=== PATIENT | male | born 1970 | race Caucasian/White ===

== ENCOUNTER 2020-10-25 08:39 | Emergency (ER) | payer OTHER, SELFPAY ==
[2020-10-25 08:45] VITALS: BP 138/91; PULSE 63; RESP 16; TEMP 35.8; O2SAT 100
--- NOTE | 2020-10-25 08:50 | ED.GENADULT ---
HPI - General Adult General Chief complaint: Upper Respiratory Infection Stated complaint: Sore throat Time Seen by Provider: 10/25/20 08:50 Source: patient and RN notes reviewed Mode of arrival: ambulatory Limitations: no limitations History of Present Illness HPI narrative: 50-year-old male presents with complaints of sore throat for the past 3 weeks. Bandar reports his symptoms are constant and that he received a NEGATIVE Rapid Strep (culture also) and COVID-19 test this past week (Monday10/19/20 and Monday10/20/20). No other treatment. He reports having history of chronic throat issues without relief from Lidocaine (after this provider offer for relief). Report performing oral sexual on spouse prior to increase throat pain, in which spouse has history of yeast infections and STDs. No high fevers, drooling, neck or throat swelling. Pain is bilateral. Hurts to swallow. Exacerbation factors consist of swallowing. No rhinorrhea or nasal congestion. No voice change. No nausea, vomiting, or abdominal pain. Tolerating liquids well. Denies chills, dyspnea, difficulty swallowing, jaw pain, dental pain, facial pain, foreign body sensation, and rash. Remains active. The patient reports he have not been diagnosed with COVID-19. The patient reports he is not waiting for the results of a COVID-19 lab test. The patient reports he do not have weakness or fatigue. The patient reports he do not have a new or worsening cough or shortness of breath. Denies chest pain. The patient reports he do not have any loss of taste, nausea, abdominal pain, and diarrhea. Denies recent traveling. Denies concerns for COVID-19 or exposures been home with limited outdoor exposure except for essential household needs, work, and return home. At this time, patient is not suspected of having COVID-19. Some parts of this dictation were generated by voice recognition software and may contain typographical and/or grammatical inaccuracies. Related Data Home Medications Medication Instructions Recorded Confirmed gabapentin 600 mg PO TID 11/04/19 11/04/19 levothyroxine 10/25/20 lorazepam 10/25/20 nortriptyline 10/25/20 Allergies Allergy/AdvReac Type Severity Reaction Status Date / Time No Known Allergies Allergy Verified 01/12/19 18:49 Review of Systems Review of Systems: Narrative: CONSTITUTIONAL: Denies fever, chills, sweats. EYES: Denies visual changes, redness, discharge. ENT: Denies rhinorrhea, otalgia, congestion. Complains of sore throat, possible STD exposure. CARDIOVASCULAR: Denies chest pain, palpitations, edema. RESPIRATORY: Denies dyspnea, wheezing, cough. GASTROINTESTINAL: Denies abdominal pain, nausea, vomiting, diarrhea. GENITOURINARY: Denies dysuria, hematuria, abnormal discharge. SKIN: Denies rash or itching. MUSCULOSKELETAL: Denies acute back pain, joint pain, or myalgia. NEUROLOGIC: Denies numbness or focal weakness. PSYCHIATRIC: Denies anxiety or depression. All systems reviewed & are unremarkable except as noted in HPI and below. [facility] Past Medical History Medical History (Updated 10/25/20 @ 12:32 by CHRISTINE Beltre) Chronic sore throat Treated at 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
--- NOTE | 2020-10-25 10:13 | PC.NURSE ---
Rocephin and zithromax given at 0922. Rocephin given in left gluteus. Unable to scan as computer had been left unplugged.
--- NOTE | 2020-10-25 10:15 | PC.NURSE ---
Throat culture obtain per instruction. Looking specifically for gonorrhea and or chlamydia.
== END 2020-10-25 09:47 | disposition home or self-care (01) ==
PROVIDERS: Emergency Provider Nurse Practitioner Family
DX: J02.9 Acute pharyngitis, unspecified (principal); Z20.2 Contact with and (suspected) exposure to infections with a predominantly sexual mode of transmission
CPT/HCPCS: 87070; 87491; 87591; 87804; 99213; G0463

== ENCOUNTER 2022-06-29 15:51 | Emergency (ER) | payer OTHER, SELFPAY ==
[2022-06-29 16:12] VITALS: BP 113/68; PULSE 65; RESP 16; TEMP 36.1; O2SAT 98
--- NOTE | 2022-06-29 16:19 | ED.URI ---
HPI - URI/Sore Throat General Chief Complaint: Upper Respiratory Infection Stated Complaint: SORE THROAT Time Seen by Provider: 06/29/22 16:19 Source: patient and RN notes reviewed Mode of arrival: ambulatory Limitations: no limitations History of Present Illness HPI Narrative: 52-year-old male presents with concern for chronic sore throat. He reports a history of problems with his throat causing him frequent sore throat. He reports he has had this current sore throat for 2 weeks. He is concerned because he has had similar instances in the past with this sore throat that more related to oral sex with his when she had a yeast infection. He reports in the past he was treated successfully with fluconazole. He denies nasal congestion, rhinorrhea, headache, body aches, chills, sweats, fever. Denies known sick contacts. Reports he took a negative COVID test. MD elicited complaint: sore throat Related Data Home Medications Medication Instructions Recorded Confirmed gabapentin 600 mg tablet 600 mg PO TID 11/04/19 11/04/19 levothyroxine 75 mcg tablet 10/25/20 lorazepam 0.5 mg tablet 10/25/20 Allergies Allergy/AdvReac Type Severity Reaction Status Date / Time No Known Allergies Allergy Verified 01/12/19 18:49 Review of Systems Review of Systems: CONSTITUTIONAL: Denies malaise, chills, sweats, or fever. EYES: Denies visual changes, redness, or discharge. ENT: Denies rhinorrhea, congestion, sinus pain, otalgia. Reports sore throat. CARDIOVASCULAR: Denies chest pain, palpitations, or edema. RESPIRATORY: Denies cough. Denies dyspnea. GASTROINTESTINAL: Denies abdominal pain, nausea, vomiting, diarrhea SKIN: Denies rash or itching. MUSCULOSKELETAL: Denies myalgia. NEUROLOGIC: Denies headache. 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 Family History Family History (Updated 10/25/20 @ 09:06 by CHRISTINE Beltre) Father Malignant neoplasm of prostate Mother Hypertension Social History Social History (Updated 10/25/20 @ 09:07 by CHRISTINE Beltre) Smoking status: Never smoker Tobacco type: cigarettes Second hand tobacco smoke exposure: No Alcohol intake: current Substance use: never Additional living arrangements comments: spouse Gender identity (if verbalized by the patient): Male Sexual Orientation (if Verbalized by the Patient): Straight or Heterosexual Comments At time of signature, agree with nursing past medical, surgical, social and family history. There is no relevant family history pertinent to the presenting complaint Exam Narrative: GENERAL: Well-appearing, well-nourished, and in no acute distress. HEAD: Normocephalic EYES: PERRLA, conjunctivae clear ENT: Nares clear. Mucous membranes moist. TM pearly colon with dull light reflex bilaterally; no tragal tenderness. Oropharynx not erythematous, white papules noted on the tongue Tonsils not enlarged and without exudate, no drooling, no hoarseness, no trismus, uvula midline. NECK: Supple. No lymphadenopathy CHEST: Clear to auscultation, breath sounds equal. No wheezing, rhonchi, rales, or stridor. No respiratory distress, speaks in full sentences. HEART: Regular rate and rhythm. No murmur heard. SKIN: Warm, dry, no rash. NEURO: Alert and oriented x3. PSYCH: Normal mood and affect Course Course Emergency Course: Discussed negative strep results, treatment options, patient reports success with treatment with fluconazole, through shared decision making fluconazole prescribed. Patient instructed to follow-up if symptoms do not improve. Patient is aware of diagnosi
== END 2022-06-29 16:37 | disposition home or self-care (01) ==
PROVIDERS: Emergency Provider Nurse Practitioner; PCP Internal Medicine
DX: J31.2 Chronic pharyngitis (principal); E03.9 Hypothyroidism, unspecified
CPT/HCPCS: 87081; 87880; 99213; G0463

== ENCOUNTER 2023-05-29 06:42 | Emergency (ER) | payer OTHER, SELFPAY ==
[2023-05-29 06:45] VITALS: BP 128/90; PULSE 74; RESP 12; TEMP 36.7; O2SAT 100
--- NOTE | 2023-05-29 07:47 | ED.GENADULT ---
HPI - General Adult General Chief complaint: Unspecified Stated complaint: pill stuck in throat Time Seen by Provider: 05/29/23 07:04 History of Present Illness HPI narrative: Patient is a 53-year-old male who presents ER with concerns for having a pill stuck in his throat. He recently was started on doxycycline after having a tick bite. No fevers or chills or sweats. Reports after taking the pill last night he began having discomfort in the middle of his chest several hours later. He has been able to eat and drink and has no regurgitation. 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 He has never had a diagnosis of a esophageal stricture or food impaction Related Data Home Medications Medication Instructions Recorded Confirmed gabapentin 600 mg tablet 600 mg PO TID 11/04/19 11/04/19 levothyroxine 75 mcg tablet 10/25/20 lorazepam 0.5 mg tablet 10/25/20 Allergies Allergy/AdvReac Type Severity Reaction Status Date / Time No Known Allergies Allergy Verified 05/29/23 06:56 Review of Systems ENT: Denies dysphagia and Denies sore throat Cardiovascular: Cardiovascular: Denies chest pain and Denies dyspnea on exertion Gastrointestinal: Gastrointestinal: Denies abdominal pain, Denies belching, Denies dysphagia, Reports heartburn, Denies nausea and Denies vomiting PMFSH Past Medical History Medical History (Updated 05/29/23 @ 07:48 by Jorge Luis Angulo MD) Chronic sore throat Treated at [facility] and GI Hypothyroidism Surgical History Surgical History (Updated 10/25/20 @ 12:32 by CHRISTINE Beltre) 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 Family History Family History (Updated 10/25/20 @ 09:06 by CHRISTINE Beltre) Father Malignant neoplasm of prostate Mother Hypertension Social History Social History (Updated 10/25/20 @ 09:07 by CHRISTINE Beltre) Smoking status: Never smoker Tobacco type: cigarettes Second hand tobacco smoke exposure: No Alcohol intake: current Substance use: never Living arrangements: with family Additional living arrangements comments: spouse Occupation/Education: occupation Gender identity (if verbalized by the patient): Male Sexual Orientation (if Verbalized by the Patient): Straight or Heterosexual Exam Narrative: GENERAL: Well-appearing, well-nourished, and in no acute distress. HEAD: Normocephalic, atraumatic. ENT: Mucous membranes moist. EXTREMITIES: Normal range of motion. No edema. NEURO: Alert and oriented x3. PSYCH: Normal mood and affect. Course Course Emergency Course: Patient resting comfortably. Discussed esophagitis caused by taking his medication without any food. Discussed that x-ray will not show foreign body. Patient has no symptoms of esophageal obstruction. [place] appropriate be discharged home and may take his home PPI Vital Signs Vital signs: Vital Signs Temperature 98.1 F 05/29/23 06:45 Pulse Rate 74 05/29/23 06:45 Respiratory Rate 12 05/29/23 06:45 Blood Pressure 128/90 05/29/23 06:45 Pulse Oximetry 100 05/29/23 06:45 Oxygen Delivery Room Air 05/29/23 06:45 Temperature 98.1 F 05/29/23 06:45 Pulse Rate 74 05/29/23 06:45 Respiratory Rate 18 05/29/23 07:50 Blood Pressure 128/90 05/29/23 06:45 Pulse Oximetry 99 05/29/23 07:50 Oxygen Delivery Room Air 05/29/23 06:45 Medical Decision Making Vital Signs Vital Signs: Vital Signs Temperature 98.1 F 05/29/23 06:45 Pulse Rate 74 05/29/23 06:45 Respiratory Rate 12 05/29/23 06:45 Blood Pressure 128/90 05/29/23 06:45 Pulse Oximetry 100 05/29/23 06:45 Oxygen Delivery Room Air 05/29/23 06:45 Temperature 98.1 F 05/29/23 06:45 Pulse Rate 74 05/29/23 06:45 Respiratory
[2023-05-29 07:50] VITALS: RESP 18; O2SAT 99
== END 2023-05-29 07:51 | disposition home or self-care (01) ==
PROVIDERS: Emergency Provider Emergency Medicine
DX: K20.80 Other esophagitis without bleeding (principal); E03.9 Hypothyroidism, unspecified
CPT/HCPCS: 99281

== ENCOUNTER 2024-02-05 08:59 | Emergency (ER) | payer OTHER, SELFPAY ==
--- NOTE | ~2024-02-05 | CT_ITS ---
EXAMINATION: CT cervical spine wo con DATE: 02/05/2024 09:58 INDICATION: Head injury 3 days ago. Neck pain. TECHNIQUE: Computed tomography (CT) of the cervical spine was performed without intravenous contrast. Automated exposure control and iterative reconstruction technique were employed. Exam dose: 525.84 mGy-cm total exam DLP. COMPARISON: None FINDINGS: There is slight reversal cervical curvature which may be due to positioning or muscle spasm . There is uncovertebral joint spurring on the right at C3-4 and on the left C4-5 in particular. C1 and C2 are normally aligned and the odontoid process is intact. No fracture or dislocation or lock ed facet or prevertebral soft tissue swelling is detected. Cervical interspaces are relatively well p reserved.. Incidentally noted is a right-sided aortic arch.. IMPRESSION: Slight reversal of cervical curvature, which may be due to positioning or muscle spasm Mild cervical spondylosis; no fracture or dislocation or locked facet Right sided aortic arch Reviewed, dictated and finalized at [facility]. Reviewed, dictated and finalized at [facility]. IMPRESSION: Slight reversal of cervical curvature, which may be due to positio nya or muscle spasm Mild cervical spondylosis; no fracture or dislocation or locked facet Right sided aortic arch
--- NOTE | ~2024-02-05 | XR_ITS ---
EXAMINATION: XR shoulder RT min 2V DATE: 02/05/2024 10:04 INDICATION: Right shoulder injury and pain. TECHNIQUE: 4 views of right shoulder were obtained. COMPARISON: None. FINDINGS: Bone alignment is normal. No fracture. Glenohumeral joint is normal. There is mild acromioc lavicular joint osteoarthritis. IMPRESSION: 1. Mild right acromioclavicular joint osteoarthritis. Reviewed, dictated and finalized at [facility].
--- NOTE | ~2024-02-05 | CT_ITS ---
EXAMINATION: CT brain wo con DATE: 02/05/2024 09:58 INDICATION: Head injury 3 days ago. Headache, lightheadedness, nausea, emesis. TECHNIQUE: Computed tomography (CT) of the head was performed without intravenous contrast. The mA wa s adjusted according to patient size. Iterative reconstruction technique was employed. Exam dose: 68 1.00 mGy-cm total exam DLP. COMPARISON: None FINDINGS: No intracranial mass lesion or hemorrhage or cerebrovascular accident. No midline shift or mass effect. Normal ventricular size. Normal colon-white matter differentiation. No subdural or epidur al hematoma. Mild mucoperiosteal thickening of the right maxillary sinus and soft tissue opacification of the righ t infundibulum is noted. The mastoid air cells and included paranasal sinuses are otherwise unremarka ble. No fracture or bone destruction of the cranial vault. IMPRESSION: No significant intracranial abnormality or skull fracture Reviewed, dictated and finalized at [facility]. Reviewed, dictated and finalized at [facility].
[2024-02-05 09:02] VITALS: BP 127/87; PULSE 59; RESP 18; TEMP 36.5; O2SAT 100
--- NOTE | 2024-02-05 09:33 | ED.HEATRA ---
HPI - Head Injury General Chief complaint: Head Injury Stated complaint: hit head snowboarding Monday Time Seen by Provider: 02/05/24 09:19 Source: patient Mode of arrival: ambulatory Limitations: no limitations History of Present Illness HPI Narrative: Patient is a 53 y/o male who presents to the ED with c/o HI. Patient reports he was skiing over the weekend when he had a fall, fell backwards and hit his head on the ground. He was wearing a helmet. Denied LOC. States he continued skiing that day into Monday, but has had persistent posterior headaches, posterior neck pain, pain in his right shoulder. He also reported having mild lightheadedness and nausea this morning which prompted his presentation. Denies syncope, vomiting, vision changes, CP, SOB, confusion, weakness, numbness. Related Data Home Medications Medication Instructions Recorded Confirmed gabapentin 600 mg tablet 600 mg PO TID 11/04/19 11/04/19 levothyroxine 75 mcg tablet 10/25/20 lorazepam 0.5 mg tablet 10/25/20 Allergies Allergy/AdvReac Type Severity Reaction Status Date / Time No Known Allergies Allergy Verified 05/29/23 06:56 Review of Systems Review of Systems: CONSTITUTIONAL: Denies fever, chills, or sweats. ENT: Denies vision changes. CARDIOVASCULAR: Denies chest pain. RESPIRATORY: Denies dyspnea. GASTROINTESTINAL: Reports mild nausea. MUSCULOSKELETAL: See HPI. NEUROLOGIC: See HPI. 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 HEAD: Normocephalic, atraumatic. EYES: PERRL/EOMI, conjunctiva clear. No nystagmus. NECK: No significant midline cervical spinal tenderness. Tenderness along posterior cervical paraspinal musculature bilaterally, worse on R. RESPIRATORY: Airway patent, respirations nonlabored. Clear to auscultation bilaterally, no rales, rhonchi, wheezing. CARDIOVASCULAR: Regular rate and rhythm without murmurs, rubs, or gallops. MUSCULOSKELETAL: Moves all extremities. No gross deformities. No midline thoracic or lumbar spinal tenderness. SKIN: Warm, dry, normal color. NEURO: A&O X3. Speech clear. Cranial nerves II-XII grossly intact. Steady gait. No ataxic movements. No focal deficits. PSYCHIATRIC: Appropriate mood and affect. Normal interaction. Course Vital Signs Vital signs: Vital Signs Temperature 97.7 F 02/05/24 09:02 Pulse Rate 59 L 02/05/24 09:02 Respiratory Rate 18 02/05/24 09:02 Blood Pressure 127/87 02/05/24 09:02 Pulse Oximetry 100 02/05/24 09:02 Temperature 97.7 F 02/05/24 09:02 Pulse Rate 59 L 02/05/24 09:02 Respiratory Rate 18 02/05/24 09:02 Blood Pressure 127/87 02/05/24 09:02 Pulse Oximetry 100 02/05/24 09:02 MDM - Head Injury MDM Narrative Medical decision making narrative: Patient presented to ED 3 days s/p HI while snow skiing. Complains of headache,
[2024-02-05 10:43] VITALS: BP 131/102; PULSE 57; RESP 16; TEMP 36.7; O2SAT 99
== END 2024-02-05 10:46 | disposition home or self-care (01) ==
PROVIDERS: Emergency Provider Physician Assistant; PCP Physician Assistant
DX: S09.90XA Unspecified injury of head, initial encounter (principal); S46.911A Strain of unspecified muscle, fascia and tendon at shoulder and upper arm level, right arm, initial encounter; E03.9 Hypothyroidism, unspecified; M47.812 Spondylosis without myelopathy or radiculopathy, cervical region; M19.011 Primary osteoarthritis, right shoulder; V00.321A Fall from snow-skis, initial encounter; Y93.23 Activity, snow (alpine) (downhill) skiing, snowboarding, sledding, tobogganing and snow tubing
CPT/HCPCS: 70450; 72125; 73030; 99284

== ENCOUNTER 2025-08-29 05:41 | Emergency (ER) | payer OTHER, SELFPAY ==
--- OUTSIDE RECORDS SUMMARY | 2013-09-10 10:46 | XMS_ITS | Continuity of Care Document ---
Author Organization [facility] Address [address] [place] [address] Phone Care Team Providers Care Director Case Management Name Role Phone Kathy HSANNON, Hurst Unavailable Unavailable Allergies, Adverse Reactions, Alerts Substance Reaction Status Criticality No Known allergies Medications Medication Instructions Dosage Effective Dates (start - stop) Status Comments DEXILANT (unknown strength) Not Available - Active TIROSINT (unknown strength) Not Available - Active Procedures Procedure Date MU Reporting MU Reporting MU Reporting POSTOP FOLLOW-UP VISIT MU Reporting POSTOP FOLLOW-UP VISIT MU Reporting OFFICE/OUTPATIENT VISIT EST Advance Directives Directive Yes / No Effective Date File Name No Information Encounters Encounter Description Practice Location Reason(s) For Visit Diagnoses Date Provider Providers Copied on Encounter [facility], [address] [place] [address], [facility], tel:[phone] [facility] No Information 3 Kathy Hurst. [address] [place], [place], [id number] . tel: [phone] [facility], [address] [place] [address], [address], tel:[phone] [facility] No Information 3 Kathy Hurst. [address], [place], [id number] . tel: [phone] [facility], [address], [place], [facility], [place] tel:[phone] [facility] Aftercare following surgery of the musculoskeletal system, necOsteoarthrosi s, unspecified whether generalized or localized, involving lower leg 3 Kathy Hurst. [address] [facility] [place], [place], [id number] . tel: [phone] Referring Provider: Bryce Butterfield [address] [place] [address] , [place], [address]. tel:[phone] [facility], [address], [address], [place] tel:[phone] [facility] Aftercare following surgery of the musculoskeletal system, nec 3 Kathy Hurst. [address] [place], [place], [id number] . tel: [phone] Referring Provider: Bryce Butterfield [address] [place] [address] , [place], [address]. tel:[phone] [facility], [address], [address], [place] tel:[phone] [facility] No Information 3 Kathy Hurst. [address] [place], [place], [id number] . tel: [phone] OFFICE/OUTPAT IENT VISIT EST [facility], [address], [address], [place] tel:[phone] [facility] Medial meniscal tearKnee effusion 0 3 Kathy Hurst. [address] [place], [place], [id number] . tel: [phone] Referring Provider: Bryce Butterfield [address] [place] [address] , [place], [address]. tel:[phone] Family History Family Member Type Diagnosis Age At Onset Problem (finding) Family history of prost ate cancer Payers Payer name Insurance type Covered republican ID Authoriza tion(s) No Information Social History Type Description Quantity Date Captured Comments Sex Male Smoking Status No Information Chief Complaint And Reason For Visit No Information Reason For Referral Reason For Referral No Information Plan Of Treatment Date Type Action Status Referral Ordered: INJECTION LT knee Appointment date/timeframe: 07/02/2013 ordered Referral Ordered: RADEX TALON COMPL 4/MORE VIEWS LT knee ordered History Of Present Illness Encounter Date Complaint History Of Prese nt Illness No Information Functional Status Date Functional Assessmen t No Information Instructions Date Instruction Additional Infor mation Continue medication as prescribe d Activity as tolerated Discussed post-operative precaut ions Continue medication as prescribe d Activity as tolerated OTC anti-inflammatories (NSAIDs) Activity as tolerated to limit activity OTC anti-inflammatories (NSAIDs) Activity as tolerated Assessments Type Assessment Date No Information Patient Care Teams Name Effective Dates (start - stop) Status Members No Information
--- OUTSIDE RECORDS SUMMARY | 2013-09-10 10:46 | XMS_ITS | Continuity of Care Document ---
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 No Information 3 Kathy Hurst. [address] [place], [place], [id number] . tel: [phone] [facility], [address] [place] [address], [address], tel:[phone] [facility] No Information 3 Kathy Hurst. [address], [id number] . tel: [phone] [facility], [address], [place], [facility], [place] tel:[phone] [facility] Aftercare following surgery of the musculoskeletal system, necOsteoarthrosi s, unspecified whether generalized or localized, involving lower leg [address] [facility] [place], [place], [address] . tel: [phone] Referring Provider: Bryce Butterfield [address] [place] [address] , [place], [address]. tel:[phone] [facility], [address], [address], [place] tel:[phone] [facility] Aftercare following surgery of the musculoskeletal system, nec 3 Kathy Hurst. [address] [place], [place], [id number] . tel: [phone] Referring Provider: Bryce Butterfield [address] [place] [address] , [place], [address]. tel:[phone] [facility], [address], [address], [place] tel:[phone] [facility] No Information 3 Kathy Hurst. [address] [place], [place], [id number] . tel: [phone] OFFICE/OUTPAT IENT VISIT EST [facility], [address], [address], [place] tel:[phone] [facility] Medial meniscal tearKnee effusion 0 3 Kathy Hurst. [address] [place], [place], [id number] . tel: [phone] Referring Provider: Bryce Butterfield [address] [place] [address] , [place], [address]. tel:[phone] Family History Family Member Type Diagnosis Age At Onset Problem (finding) Family history of prost ate cancer Payers Payer name Insurance type Covered green party ID Authoriza tion(s) No Information Social History [...]
--- OUTSIDE RECORDS SUMMARY | 2025-08-29 05:44 | XMS_ITS | Clinical Summary ---
Author Organization [facility] Medical Office Building A Address [address] [place] [address] Care Team Providers Care Disability Insurance Hearing Officer Name Role Phone Mario Toro Primary Care Provider Viktoria Quiñonez MD, Brigidosara Souza Unavailable [phone] Allergies Active Allergy Reactions Criticality Noted Date Comments Metoclopramide Other (See comments) Medium Reaction: confusion at times, tired, sleepy, , Reaction: confusion at times, tired, sleepy, Medications propranolol (INDERAL) 40 mg tablet Take 1 tablet (40 mg total) by mouth 2 (two) times a day As needed for public speaking 180 tablet 3 11/06/20 19 Active LORazepam (ATIVAN) 0.5 mg tablet Take 1 tablet (0.5 mg total) by mouth every 8 (eight) hours as needed for anxiety 30 tablet 1 08/16/20 24 Active levothyroxine (SYNTHROID) 75 mcg tablet TAKE 1 TABLET EARLY IN THE MORNING BEFORE BREAKFAST 90 tablet 3 06/23/20 25 Active gabapentin (NEURONTIN) 400 mg capsule Take 1 capsule (400 mg total) by mouth 3 (three) times a day 270 capsule 3 06/24/20 25 026 Active tadalafiL (CIALIS) 20 mg tablet Take 1 tablet (20 mg total) by mouth daily as needed for erectile dysfunction 30 tablet 3 08/19/20 25 Active tadalafiL (CIALIS) 20 mg tablet TAKE 1 TABLET DAILY NEEDED FOR ERECTILE DYSFUNCTION 30 tablet 3 04/29/20 24 025 Discontinued(Re order) lidocaine-hyd rocortisone-a emre 3-2.5 % (7 gram) kit Apply as needed up to two times per day 2 kit 04/29/20 25 025 Discontinued Active Problems Problem Noted Date Diagnosed Date Hemorrhoids 04/29/2025 Assessment & Plan (04/29/2025 3:49 PM CDT): Cervical spine pain 03/23/2021 Assessment & Plan (03/23/2021 2:39 PM CDT): r infrra laat neck and then into r upper sholder and grimces with nect rom makes me think this likely neck and maybe radicular trial nect self pt and see if helps Other male erectile dysfunction 05/14/2020 Mixed hyperlipidemia 05/07/2020 Assessment & Plan (08/19/2025 6:56 AM CDT): Counseled on heart healthy diet exercise Assessment & Plan (02/12/2025 1:50 PM CDT): Counseled on heart healthy diet exercise Assessment & Plan (08/16/2024 7:29 AM CDT): Counseled on heart healthy diet exercise Assessment & Plan (03/23/2021 2:40 PM CDT): Starting atorvastihn 10 and take 1/2 for a month then 1 and crush And take over a week Your cholesterol in the form of ldl (bad) cholesterol,hdl(good) cholesterol and triglycerides are monitored. The triglycerides respond to reduction/controll of your simple carbs/sugars In such items as sugared soda/sweet tea along with fruit juices(containing natural sugar) even if no added sugar is added. LDL cholesterol is reduced with reducing daily intake of fats and denisse. saturated fats. The monosaturated fats like olive oil are not harmful except in the calories they contained. Whole milk cheese needs to be remembered along with whole milk products And limited. faimly on chol meds and would wfeel safer to start so low dose statin max 1 pill a week and crush to divide out over week and recheck along with tsh. Assessment & Plan (05/07/2020 11:27 AM CDT): Trig mild iup at 189 and ldl at 106 hel 44 and mild mixed cholYour cholesterol in the form of ldl (bad) cholesterol,hdl(good) cholesterol and triglycerides are monitored. The triglycerides respond to reduction/controll of your simple carbs/sugars In such items as sugared soda/sweet tea along with fruit juices(containing natural sugar) even if no added sugar is added. LDL cholesterol is reduced with reducing daily intake of fats and denisse. saturated fats. The monosaturated fats like olive oil are not harmful except in the calories they contained. Whole milk cheese needs to be remembered along with whole milk products And limited. Chronic bilateral low back pain without sciatica 05/07/2020 Assessment & Plan (05/07/2020 11:53 AM CDT): Chronic and suggest core and ga e core program to try Neuropathy 05/06/2019 Assessment & Plan (05/07/2020 11:28 AM CDT): Becca 3 zaid a day and does well and will stay there Assessment & Plan (11/06/2019 10:29 AM [employer]): Using becca at 600 tid and works well and no changes Assessment & Plan (05/06/2019 11:08 AM CDT): felilng in throat an neck and controlled with becca and if misses will flair. Screening labs q 6months BMI 26.0-26.9,adult 05/06/2019 Assessment & Plan (04/29/2025 3:49 PM CDT): Assessment & Plan (03/23/2021 2:43 PM CDT): Muscle mass do not see wt but maybe a touch heavey Assessment & Plan (05/07/2020 11:21 AM CDT): Work to drop a few Assessment & Plan (11/06/2019 10:30 AM [employer]): Work to keep stable Assessment & Plan (05/06/2019 11:11 AM CDT): Work to keep wt stable Situational anxiety 05/06/2019 Assessment & Plan (05/07/2020 11:29 AM CDT): Prn propanolol used 2 times and ativan on ra re mary jo Assessment & Plan (11/06/2019 10:30 AM [employer]): luse of propanolol 40 bid discussed and suggst to play with before need to see effect. Assessment & Plan (05/06/2019 11:13 AM CDT): Referral to [facility] and see if can help without meds. Monthly ativan use Acquired hypothyroidism 05/06/2019 Assessment & Plan (03/23/2021 2:34 PM CDT): Check tsh on retunr Assessment & Plan (05/07/2020 11:26 AM CDT): tsh at 1.45 great andno chaegs check in a yr Assessment & Plan (11/06/2019 10:29 AM [employer]): tsh at 2.3 and good an nochagers with intent to suppress. Check in ayr'ly basis Assessment & Plan (05/06/2019 11:15 AM CDT): On omeds and tsh 1.33. No changes and fcheck 6months Kidney stone 10/04/2018 Assessment & Plan (11/06/2019 10:32 AM [employer]): Push fluids PE (physical exam), annual 10/04/2018 Assessment & Plan (08/19/2025 6:54 AM CDT): Discussed routine screenings and vaccines Assessment & Plan (08/16/2024 7:29 AM CDT): Discussed routine screenings and vaccines Assessment & Plan (05/07/2020 11:53 AM CDT): Well male with wt reasonable consider fallflu shot colon Coming up at age 51. psa In process.tetnus up to date. Restart workout and gave a Sore proram to try. Discussed flul shot Assessment & Plan (11/06/2019 10:32 AM [employer]): Check in 6monbnth with p.e. Assessment & Plan (05/06/2019 11:16 AM CDT): Father with prostate cancer and screen regularly. Labs lyr'lyl and scrren for med every 6monthts. Varicocele 03/30/2016 Testosterone deficiency 03/30/2016 Goiter 04/12/2014 Overview (03/03/2017): Thyromegaly Chronic pharyngitis 06/21/2013 Chondromalacia of patella 01/01/2013 Vascular ring of aorta 09/28/2012 Overview (03/02/2017): Vascular ring Laryngopharyngeal reflux 09/28/2012 Overview (03/03/2017): GERD (gastroesophageal reflux disease) Assessment & Plan (05/07/2020 11:28 AM CDT): No actaive issues Temporary cerebral vascular dysfunction 10/13/20 11 Traumatic arthritis of ankle 07/27/2010 Resolved Problems Problem Noted Date Diagnosed Date Resolved Date Neck pain 03/23/2021 02/08/2023 Assessment & Plan (03/23/2021 2:35 PM CDT): Referral to ent for eval. Acute bilateral low back karon n with bilateral sciatica 08/01/2018 09/12/2018 Assessment & Plan (08/01/2018 4:23 PM CDT): Core exercises and trial steroid pulse. Pt if cont. onlg talk about gabapentin and possible dose taper and consider 600 inter between 800 to see if can taper back. Inguinal pain 11/17/2015 05/06/2019 Overview (03/02/2017): Inguinal pain Shoulder pain 03/03/2015 02/08/2023 Overview (03/02/2017): Shoulder pain Assessment & Plan (05/06/2019 11:14 AM CDT): choronic For monhts and Self wo rk Knee pain 12/31/2012 08/09/2022 Sore throat 10/03/2012 08/09/2022 Dizziness 10/03/2012 08/09/2022 Difficulty swallowing 10/03/20122022 Shortness of breath 09/28/2012 08/09/20 Overview (2017): Dyspnea Encounters Date Type Department Care Team Description 08/21/2025 Telephone [facility] Primary Care at [address] [phone] Chiqui Doe MA Prior Auth (becca) 08/19/2025 8:45 AM CDT Lab [address] Vitamin B 12 deficiency; Need for hepatitis B screening test; Acquired hypothyroidism; Mixed hyperlipidemia; Neuropathy 08/19/2025 8:15 AM CDT Office Visit [facility] Primary Care at [address] [phone] Mario Toro PA PE (physical exam), annual (Primary Dx); Vascular ring of aorta; Neuropathy; Acquired hypothyroidism; Mixed hyperlipidemia; BMI 26.0-26.9,adult; Erectile dysfunction, unspecified erectile dysfunction type; Situational anxiety 08/19/2025 Results Follow-Up [facility] Primary Care at [address] [phone] Mario Toro PA Vitamin B12, TSH, Lipid panel, Additional followed-up results: 2 06/24/2025 Orders Only [facility] Primary Care at [address] [phone] Mario Toro PA from Last 3 Months Immunizations Immunization Administration Dates Next Due Influenza, Unspecified 02/13/2025(Deferr ed: Patient Refused),08/27/2024(Deferred: Patient Refused),08/16/2024(Deferred: Patient Refused),08/27/2023(Deferred: Patient Refused),08/27/2023(Deferred: Patient Refused),08/11/2023(Deferred: Patient Refused),02/08/2023(Deferred: Patient Refused),08/06/2021(Deferred: Patient Refused),08/27/2020(Deferred: Patient Refused),03/10/2020(Deferred: Patient Refused),11/06/2019(Deferred: Patient Refused),11/01/2019(Deferred: Patient Refused),09/06/2019(Deferred: Patient Refused),09/06/2018(Deferred: Patient Refused),08/27/2018(Deferred: Patient Refused),08/27/2018(Deferred: Patient Refused) Pfizer SARS-CoV-2 Monovalent Vaccination (12+ Yrs) PURPLE 01/30/2021,01/10/2021 Tdap 05/03/2018 ZOSTER Recombinant 08/09/2022,10/22/2021, 021 Surgical History Surgery Date Site/Laterality Comments OTHER SURGICAL HISTORY 2009 Left left ankle surgery-surgery OTHER SURGICAL HISTORY 2010 er/ lightheadedness OTHER SURGICAL HISTORY heart surgery 04-14-11: Dr Wes STEPHEN OTHER SURGICAL HISTORY 2010 vascular ring: repair OTHER SURGICAL HISTORY 2010 Saccular aneurysm Kommerell diveritculum: Left thoracotomy. Division of ligamentum arteriosum. 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 Hx Other Medical heart surgery Hx Other Medical vascular ring Hx Other Medical Saccular aneury sm Kommerell diveritculum Hx Other Medical Probable transi ent ischemic attack Hx Other Medical back pain; Comm ents: APO 06/26/2015 - Family History Medical History Relation Name Comments Diabetes Father Diabetes mellit us; Heart attack Father Myocardial infa rction; Before age 60 Heart disease Father Heart disease; Hypertension Father Hypertension; Other Father Prostate, diabe david; Cause of : Prostate, diabetes Prostate cancer Father Cancer -pros blake; Dementia Mother Hypertension Mother Hypertension; / Hypertension; Depression Son Relation Name Status Comments Father Mother Son Alive Social History Tobacco Use Types Packs/Day Years Used Date Smoking Tobacco: Never Passive Smoke Exposure: Never Smokeless Tobacco: Never Tobacco Cessation:Counseling Given: Not Answered Alcohol Use Standard Drinks/Week Comments Yes 0 (1 standard drink = 0.6 oz pur e alcohol) PHQ-2 Answer Date Recorded PHQ-2 Total Score (If total score is 3 or more points, staff should administer the PHQ-9) 0 08/19/2025 AUDIT-C Answer Date Recorded Q1: How often do you have a drink containing alc ohol? Monthly or less 08/19/2025 Q2: How many drinks containi ng alcohol do you have on a typical day when you are drinking? 1 or 2 08/19/2025 Q3: How often do you have si x or more drinks on one occasion? Never 08/19/2025 Sex and Gender Information Value Date Recorded Sex Assigned at Not on file Legal Sex Male 7:19 PM [employer] Gender Identity Not on file Sexual Orientation Not on file Obstetrics History Last Filed Vital Signs Vital Sign Reading Time Taken Comments Blood Pressure 130/82 08/19/2025 8:20 AM CDT Pulse 55 08/19/2025 8:20 AM CDT Temperature 36.5 C (97.7 F) 08/19/2025 8:20 AM CDT Respiratory Rate 16 08/19/2025 8:20 AM CDT Oxygen Saturation 97% 08/19/2025 8:20 AM CDT Inhaled Oxygen Concentration - - Weight 85.9 kg (189 lb 6.4 oz) 08/19/2025 8:20 A M CDT Height 180.3 cm (5' 11) 08/19/2025 8:20 AM CDT Body Mass Index 26.42 08/19/2025 8:20 AM CDT Plan of Treatment Health Maintenance Due Date Last Done Comments Covid-19 Vaccine ( season) 2025 10/22/2021, 01/30/2021, 01/10/2021 Influenza Vaccine (#1) 2025 Prostate Cancer Screening-PSA 08/16/2025 08/16/2024, 08/07/2023, 02/08/2023, Additional history exists Depression Screening 08/19/2026 08/19/2025, 04/29/2025, 02/13/2025, Additional history exists Regular Well Visit/Exam 18-64 08/19/2026 08/19/2025, 08/16/2024, 08/11/2023, Additional history exists Colon Cancer Screening-DNA Stool 08/27/2027 08/27/2024, 06/14/2021 DTaP/Tdap/Td Vaccine (2 - Td or Tdap) 05/03/2028 05/03/2018 Zoster Vaccine Completed 08/09/2022, 09/28, 06/15/2021 Hepatitis B Screening Completed 08/19/2025 Hepatitis C Screening Completed 08/19/2025 Pneumococcal vaccine <65 Aged Out No longer eligible based on patient's age to complete this topic Procedures Procedure Name Priority Date/Time Associated Diagnosis Comments EGFR Routine 08/19/2025 8:05 AM CDT Mixed hyperlipidemia Neuropathy COMPREHENSIVE METABOLIC PANEL Routine 08/19/2025 8:05 AM CDT Mixed hyperlipidemia Neuropathy LIPID PANEL Routine 08/19/2025 8:05 AM CDT Mixed hyperlipidemia TSH Routine 08/19/2025 8:05 AM CDT Acquired hypothyroidism VITAMIN B12 Routine 08/19/2025 8:05 AM CDT Vitamin B 12 deficiency HEPATITIS C ANTIBODY Routine 08/19/2025 8:05 AM CDT Need for hepatitis B screening test HEPATITIS B SURFACE ANTIGEN Routine 08/19/2025 8:05 AM CDT Need for hepatitis B screening test HEPATITIS B SURFACE ANTIBODY (IMMUNE STATUS) Routine 08/19/2025 8:05 AM CDT Need for hepatitis B screening test HEPATITIS B CORE ANTIBODY, TOTAL Routine 08/19/2025 8:05 AM CDT Need for hepatitis B screening test STOOL DNA COLOGUARD Routine 08/27/2024 9:23 PM CDT Screening for colon cancer PSA SCREEN Routine 08/16/2024 9:25 AM CDT Preventative health care Screening PSA (prostate specific antigen) from Last 3 Months or Most Recently Relevant to Health Maintenance Results * eGFR (08/19/2025 8:05 AM CDT) eGFR 87 >=60 mL/min/1. 73 m2 Comment: Interpretive Data Reference Interval Normal >/= 90 mL/min/1.73m2 Mildly decreased* 60 - 89 mL/min/1.73m2 Mildly to moderately decreased 45 - 59 mL/min/1.73m2 Moderately to severely decreased 30 - 44 mL/min/1.73m2 Severely decreased 15 - 29 mL/min/1.73m2 Kidney Failure < 15 mL/min/1.73m2 *Relative to young adult level Estimated glomerular filtration rate is determined by the 2020 CKD-EPI equation recommended by the National Kidney Foundation (A Unifying Approach to GFR Estimation: Recommendations of the NKF-ASK Task Force on Reassessing the Inclusion of Race in Diagnosing Kidney Disease, JASN 2020). The CKD-EPI equation should not be used for patients with unstable renal function and has not been validated in children and those over 70. Current interpretive data was last reviewed 2021. Blood 08/19/2025 8:05 AM CDT 08/19/2025 8:44 AM CDT us Mario MILLER LAB BLOOD ORDERABLES Fi nal Result [facility] [place]) 1 [facility] Department [place] [address] * Hepatitis C antibody Blood (08/19/2025 8:05 AM CDT) Hep C Ab Nonreactive Nonreactive Comment: Interpretive Data Nonreactive: Antibodies to HCV not detected. Does NOT exclude the possibility of recent exposure to HCV. Equivocal: Equivocal for HCV antibodies. Supplemental molecular testing will be automatically performed to determine infection status in accordance with current CDC screening recommendations. Reactive: Positive for HCV antibodies. This may represent current or past HCV infection. Supplemental molecular testing will be automatically performed to determine current infection status in accordance with current CDC screening recommendations. Interpretive data was last revised on 2020. Testing performed by: [facility], [address] [place] [address]., [id number] Blood 08/19/2025 8:05 AM CDT 08/19/2025 11:09 AM CDT Mario MILLER LAB MICROBIOLOGY - GENE RAL ORDERABLES Final Result Performing Organization Address City/[facility]/ZIP Co de Phone Number [facility] ([place]) [address] [place] [address] [facility] [place], [place] [id number] * Hepatitis B core antibody, total Blood (08/19/2025 8:05 AM CDT) Hep B core IgG/IgM Nonreactive Nonreactive Comment:Testing performed by : [facility], [address] [place] [address], [id number] Blood 08/19/2025 8:05 AM CDT 08/19/2025 11:52 AM CDT Mario MILLER LAB MICROBIOLOGY - GENE RAL ORDERABLES Final Result [facility] ([place]) 1 [facility] [place] [address] * Hepatitis B surface antibody (immune status) Blood (08/19/2025 8:05 AM CDT) HBsAb (immune status) Nonreactive Comment: Interpretive Data Nonreactive: This result is consistent with a lack of immunity to Hepatitis B Virus when used in the setting of routine screening. Equivocal: The immune status of the individual should be further assessed, if appropriate, after consideration of clinical status, risk factors, and additional diagnostic information. Reactive: This result is consistent with immunity to Hepatitis B Virus when used in the setting of routine screening. Current interpretive data was last revised on 20. Testing performed by: [facility], [address] [place] [address]., [id number] Blood 08/19/2025 8:05 AM CDT 08/19/2025 11:09 AM CDT Mario MILLER LAB MICROBIOLOGY - GENE RAL ORDERABLES Final Result Performing Organization Address City/[facility]/ZIP Co de Phone Number [facility]) 1 [facility] [place] [address] * Hepatitis B Surface Antigen Blood (08/19/2025 8:05 AM CDT) HepBsAg Nonreactive Nonreactive Comment:Testing performed by : [facility], [address] [place] [address]., [id number] Blood 08/19/2025 8:05 AM CDT 08/19/2025 11:09 AM CDT Mario MILLER LAB MICROBIOLOGY - GENE RAL ORDERABLES Final Result Performing Organization Address [facility] Co de Phone Number [facility]) 1 [facility] [place] [address] * TSH (08/19/2025 8:05 AM CDT) Thyroid Stimulating Hormone 3.79 0.30 - 4.20 mcIUnit/mL [facility] ([place]) Blood 08/19/2025 8:05 AM CDT 08/19/2025 8:44 AM CDT Mario MILLER LAB BLOOD ORDERABLES Fi nal Result [facility]) 1 [facility] [place] [address] * Vitamin B12 (08/19/2025 8:05 AM CDT) Vitamin B12 448 230 - 1,250 pg/mL [facility]) Blood 08/19/2025 8:05 AM CDT 08/19/2025 8:44 AM CDT us Mario MILLER LAB BLOOD ORDERABLES Fi nal Result [facility] ([place]) 1 [facility] Department [place] [address] * (ABNORMAL) Lipid panel (08/19/2025 8:05 AM CDT) Cholesterol 200(H) 30 - 199 mg/dL [facility]) Comment: Interpretive Data Ages < or = 19 years Acceptable: <170 mg/dL Borderline high: 170-199 mg/dL High: >or= 200 mg/dL Ages > or = 20 years Desirable: <200 mg/dL Borderline high: 200-239 mg/dL High: >or= 240 mg/dL Literature References: 1. Expert Panel on Integrated Guidelines for Cardiovascular Health and Risk Reduction in Children and Adolescents. Pediatrics 2011;128:S213 2. NCEP Expert Panel. Circulation 2004;110:227 Current Interpretive Data was last revised on 2018. Triglycerides 122 <=149 mg/dL [facility]) Comment: Interpretive Data Ages < or = 9 years Acceptable: <75 mg/dL Borderline high: 75-99 mg/dL High: >or= 100 mg/dL Ages 10 to 20 years Acceptable: <90 mg/dL Borderline high: 90-129 mg/dL High: >or= 130 mg/dL Ages > or = 20 years Desirable: <150 mg/dL Borderline high: 150-199 mg/dL High: 200-499 mg/dL Very high: >or= 499 mg/dL Literature References: 1. Expert Panel on Integrated Guidelines for Cardiovascular Health and Risk Reduction in Children and Adolescents. Pediatrics 2011;128:S213 2. NCEP Expert Panel. Circulation 2004;110:227 Current Interpretive Data was last revised on 2018. HDL 56 >=40 mg/dL [facility]) Comment: Interpretive Data Ages < or = 19 years Acceptable: >45 mg/dL Borderline low: 40-45 mg/dL Low: <40 mg/dL Ages > or = 20 years Desirable: >or= 60 mg/dL Low: <40 mg/dL Literature References: 1. Expert Panel on Integrated Guidelines for Cardiovascular Health and Risk Reduction in Children and Adolescents. Pediatrics 2011;128:S213 2. NCEP Expert Panel. Circulation 2004;110:227 Current Interpretive Data was last revised on 2018. LDL, calculated 122 <=129 mg/dL [facility]) Comment: Interpretive Data Ages < or = 19 years Acceptable: <110 mg/dL Borderline high: 110-129 mg/dL High: >or= 130 mg/dL Ages > or = 20 years Optimal: <100 mg/dL Near optimal: 100-129 mg/dL Borderline high: 130-159 mg/dL High: >160 mg/dL Calculated using the Margarito LDL-C estimating equation. This equation was implemented on 2024. Prior to this date LDL-C was estimated using the Friedewald equation. Literature References: 1. Expert Panel on Integrated Guidelines for Cardiovascular Health and Risk Reduction in Children and Adolescents. Pediatrics 2011;128:S213 2. NCEP Expert Panel. Circulation 2004;110:227 3. Margarito Mckeon al. MAKSIM Cardiol. 2019March 27;5(5):540-548. doi: 10.1001/[email or web address] Current Interpretive Data was last revised on 2024. Testing performed by: [facility], [facility], [place], [address] Non-HDL Cholesterol 144 mg/dL [facility]) Comment: Interpretive Data Ages < or = 19 years Acceptable: <120 mg/dL Borderline high: 120-144 mg/dL High: >145 mg/dL Ages > or = 20 years When triglycerides are >200 mg/dL, Non-HDL cholesterol is a secondary target of therapy with treatment goals that are 30 mg/dL greater than the LDL cholesterol target. Literature References: 1. Expert Panel on Integrated Guidelines for Cardiovascular Health and Risk Reduction in Children and Adolescents. Pediatrics 2011;128:S213 2. NCEP Expert Panel. Circulation 2004;110:227 Current Interpretive Data was last revised on 2018. Testing performed by: [facility], [facility], [place], [address] Chol/HDL ratio 4 [facility] ([place]) Comment:Testing performed by : [facility], [facility], [place], [address] Blood 08/19/2025 8:05 AM CDT 08/19/2025 8:44 AM CDT us Mario MILLER LAB BLOOD ORDERABLES Fi nal Result [facility]) 1 [facility] Department [place] [address] * Comprehensive metabolic panel (08/19/2025 8:05 AM CDT) Sodium 140 135 - 145 mmol/L [facility] ([place]) Potassium, pl 3.9 3.3 - 4.9 mmol/L [facility]) Chloride 104 97 - 110 mmol/L [facility]) CO2 25 22 - 32 mmol/L [facility]) Anion gap 11 2 - 15 mmol/L [facility]) BUN 16 6 - 25 mg/dL [facility]) Creatinine 1.02 0.80 - 1.30 mg/dL [facility]) Glucose 96 70 - 199 mg/dL [facility]) Comment: Interpretive Data Fasting glucose >/= 126 mg/dl is diagnostic for diabetes. Fasting is defined as no caloric intake for at least 8 hours. Fasting glucose between 100 mg/dl to 125 mg/dl is diagnostic of prediabetes. In a patient with classic symptoms of hyperglycemia or hyperglycemic crisis, a random glucose >/= 200 mg/dl is diagnostic for diabetes. In the absence of unequivocal hyperglycemia, results should be confirmed by repeat testing. The classification and Diagnosis of Diabetes Diabetes Care 2021; 46: S19-S40. Current interpretive data was last revised 2022. Calcium 9.3 8.5 - 10.3 mg/dL [facility]) Bilirubin, total 0.4 0.1 - 1.2 mg/dL [facility] ([facility]) Protein, pl 6.6 6.5 - 8.5 g/dL [facility] ([facility]) Albumin 4.4 3.5 - 5.0 g/dL [facility] ([facility]) Alk phos 52 40 - 130 Units/L [facility] ([facility]) ALT 14 7 - 55 Units/L [facility] ([facility]) AST 16 10 - 50 Units/L [facility] ([facility]) Blood 08/19/2025 8:05 AM CDT 08/19/2025 8:44 AM CDT us Mario MILLER LAB BLOOD ORDERABLES nal Result [facility] ([facility]) 1 [facility] Department [place] [address] * Stool DNA - Cologuard (08/27/2024 9:23 PM CDT) Stool DNA - Cologuard Negative Negative [employer] (CLIA #:[id number]) Comment: NEGATIVE TEST RESULT. A negative Cologuard result indicates a low likelihood that a colorectal cancer (CRC) or advanced adenoma (adenomatous polyps with more advanced pre-malignant features) is present. The chance that a person with a negative Cologuard test has a colorectal cancer is less than 1 in 1500 (negative predictive value >99.9%) or has an advanced adenoma is less than 5.3% (negative predictive value 94.7%). These data are based on a prospective cross-sectional study of 10,000 individuals at average risk for colorectal cancer who were screened with both Cologuard and colonoscopy. (Stewart Lipscomb et al, N Engl J Med 2014;370(14):5940-9013) The normal value (reference range) for this assay is negative. COLOGUARD RE-SCREENING RECOMMENDATION: Periodic colorectal cancer screening is an important part of preventive healthcare for asymptomatic individuals at average risk for colorectal cancer. Following a negative Cologuard result, the [place] [employer] Society and U.S. Multi-Society Task Force screening guidelines recommend a Cologuard re-screening interval of 3 years. References: [place] [employer] Guideline for Colorectal Cancer Screening: https://www.cancer.org/cancer/lqmov-vmnvan-avzgoa/rnhcvnqwl-fnhpbtymd-rhzsiqu/ac s-rec ommendations.html.; Christian CASTELLON, Clotilde DEAN, Cruzito GALARZA, Colorectal Cancer Screening: Recommendations for Physicians and Patients from the U.S. Multi-Society Task Force on Colorectal Cancer Screening , Am J Gastroenterology 2017; 112:7754-3960. TEST DESCRIPTION: Composite algorithmic analysis of stool DNA-biomarkers with hemoglobin immunoassay. Quantitative values of individual biomarkers are not reportable and are not associated with individual biomarker result reference ranges. Cologuard is intended for colorectal cancer screening of adults of either sex, 45 years or older, who are at average-risk for colorectal cancer (CRC). Cologuard has been approved for use by the U.S. FDA. The performance of Cologuard was established in a cross sectional study of average-risk adults aged 50-84. Cologuard performance in patients ages 45 to 49 years was estimated by sub-group analysis of near-age groups. Colonoscopies performed for a positive result may find as the most clinically significant lesion: colorectal cancer [4.0%], advanced adenoma (including sessile serrated polyps greater than or equal to 1cm diameter) [20%] or non- advanced adenoma [31%]; or no colorectal neoplasia [45%]. These estimates are derived from a prospective cross-sectional screening study of 10,000 individuals at average risk for colorectal cancer who were screened with both Cologuard and colonoscopy. (Stewart Fowler. et al, N Engl J Med 2014;370(14):1023-3266.) Cologuard may produce a false negative or false positive result (no colorectal cancer or precancerous polyp present at colonoscopy follow up). A negative Cologuard test result does not guarantee the absence of CRC or advanced adenoma (pre-cancer). The current Cologuard screening interval is every 3 years. ([place] [employer] Society and U.S. Multi-Society Task Force). Cologuard performance data in a 10,000 patient pivotal study using colonoscopy as the reference method can be accessed at the following location: www.Cass Art/results. Additional description of the Cologuard test process, warnings and precautions can be found at www.cologuard.com. Stool 08/27/2024 9:23 PM CDT 08/29/2024 9:52 AM CDT Mario MILLER LAB BODY FLUIDS AND STO OLS ORDERABLES Final Result [employer] (CLIA #:[id number]) [place] [address] * PSA screen (08/16/2024 9:25 AM CDT) PSA-Total 0.91 <=3.90 ng/mL Comment: Interpretive Data AGE SEX REFERENCE INTERVAL 0 minutes-150 years Female None 0 minutes-49 years Male None 50-59 years Male 0-3.90 60-69 years Male 0-5.40 70-79 years Male 0-6.20 80-150 years Male 0-6.20 The Lai PSA Total assay procedure was used. Results from different manufacturers or methods may not be comparable. Serial testing should be performed using the same method. Current interpretive data last revised 22. Blood 08/16/2024 9:25 AM CDT 08/16/2024 10:52 AM CDT Narrative [facility] ([facility]) - 08/16/2024 11:35 AM CDT fasting Mario MILLER LAB BLOOD ORDERABLES Fi nal Result [facility] ([facility]) 1 [facility] Department [place] [address] from Last 3 Months or Most Recently Relevant to Health Maintenance Insurance [facility] CHOICE PLUS CHOICE PLUS Care Teams Disability Insurance Hearing Officer Relationship Specialty Start Date End Date Mario Toro PA [address] [place] [address] [place] [address] PCP - General Internal Medicine 08/09/22 [place] [address] [address] Consulting Physician Orthopedic Surgery 08/19/25
--- OUTSIDE RECORDS SUMMARY | 2025-08-29 05:44 | XMS_ITS | Encounter Summary ---
Author Organization [employer] Address [address] [place] [address] Care Team Providers Care Solutions Sales Executive Name Role Phone Bryce Judd MD Primary Care Provider Declan gonsalez Encounter Details Date Type Department Care Team (Late st Contact Info) Description 07/24/2007 Outpatient Historical [facility] Support Serv. 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
--- OUTSIDE RECORDS SUMMARY | 2025-08-29 05:44 | XMS_ITS | Encounter Summary ---
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
--- OUTSIDE RECORDS SUMMARY | 2025-08-29 05:44 | XMS_ITS | Encounter Summary ---
Author Organization [facility] Address [address] [place] [address] Phone Care Team Providers Care Extruder Name Role Phone Bryce Judd MD Primary Care Provi gissel Mario Toro Primary Care Provider Bryce Judd MD Primary Care Provi gissel Mario Toro Primary Care Provider Viktoria Quiñonez MD, [facility] [phone] Encounter Details Date Type Department Care Team (Late st Contact Info) Description 11/15/[address] [facility] ProviderCristhian MD [address] [place] [address] Social History Tobacco Use Types Packs/Day Years Used Date Smoking Tobacco: Never Alcohol Use Standard Drinks/Week Comments Yes 0 (1 standard drink = 0.6 oz pur e alcohol) Sex and Gender Information Value Date Recorded Sex Assigned at Not on file Legal Sex Male 7:19 PM CO FOUNDER AND CEO Gender Identity Not on file Sexual Orientation Not on file documented as of this encounter Plan of Treatment Not on file documented as of this encounter Procedures Procedure Name Priority Date/Time Associated Diagnosis Comments DISCHARGE LABORATORY CUMULATIVE REPORT 11/15/2017 12:00 AM CO FOUNDER AND CEO documented in this encounter Results * DISCHARGE LABORATORY CUMULATIVE REPORT (11/15/2017 12:00 AM CO FOUNDER AND CEO) Narrative 11/15/2017 12:00 AM CO FOUNDER AND CEO Ordered by an unspecified provider. us Historical Provider LAB BLOOD ORDERABLES Nancy l Result documented in this encounter Visit Diagnoses Not on filedocumented in this encounter Care Teams Extruder Relationship Specialty Start Date End Date Bryce Judd MD PCP - General 02/24/17 07/27/22 Mario Toro PA [address] [facility] [place] [address] PCP - General Internal Medicine 07/28/22 08/02/22 Bryce Judd MD [address] [place] [address] [place] [address] PCP - General 08/03/22 08/08/22 Mario Toro PA [address] [place] [address] [place] [address] PCP - General Internal Medicine 08/09/22 [place] [address] [place] [address] Consulting Physician Orthopedic Surgery 08/19/25 documented as of this encounter
--- OUTSIDE RECORDS SUMMARY | 2025-08-29 05:44 | XMS_ITS | Clinical Summary ---
Author Organization [facility] Address [address] [place] [address] Phone Care Team Providers Care Hospice Aide Name Role Phone Bryce Judd MD Primary Care Provider Declan gonsalez Allergies No known active allergies Medications aspirin (BRIAN) 81 mg Oral Tab Take by mouth. Active levothyroxine (SYNTHROID) 50 mcg Oral tablet Take 50 mcg by mouth daily early morning babysitter. Active gabapentin (NEURONTIN) 600 mg tablet Take 600 mg by mouth 3 times daily. 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 Gender Identity Not on file Sexual Orientation Not on file Last Filed Vital Signs Vital Sign Reading Time Taken Comments Blood Pressure 100/70 12/27/2018 3:07 PM GEOPHYSICAL PROSPECTING PERMIT AGENT Pulse 72 12/27/2018 3:05 PM GEOPHYSICAL PROSPECTING PERMIT AGENT Temperature 36.6 C (97.9 F) 04/23/2012 5:13 PM CDT Respiratory Rate 16 12/27/2018 3:05 PM GEOPHYSICAL PROSPECTING PERMIT AGENT Oxygen Saturation 97% 12/27/2018 3:05 PM GEOPHYSICAL PROSPECTING PERMIT AGENT Inhaled Oxygen Concentration - - Weight 88.9 kg (196 lb) 12/27/2018 3:05 PM GEOPHYSICAL PROSPECTING PERMIT AGENT Height 180.3 cm (5' 11) 12/27/2018 3:05 PM GEOPHYSICAL PROSPECTING PERMIT AGENT Body Mass Index 27.34 12/27/2018 3:05 PM GEOPHYSICAL PROSPECTING PERMIT AGENT Plan of Treatment Health Maintenance Due Date Last Done Comments HEPATITIS B VACCINES (1 of 3 - 19+ 3-dose series) 06/1990 COLORECTAL SCREENING 2016 Colorectal Cancer Screening 2016 FIT-DNA Q 3 years 2016 FIT/FOBT Q 1 year 2016 Flex Sig/CT Colonography Q 5 years 2016 ZOSTER VACCINE (1 of 2) 2021 INFLUENZA VACCINE (#1) 2025 DTAP/TDAP/TD VACCINES (2 - Td or Tdap) 05/03/2028 Insurance [employer] PPO [id number] Care Teams Hospice Aide Relationship Specialty Start Date End Date Bryce Judd MD PCP - General 11/13/15
--- OUTSIDE RECORDS SUMMARY | 2025-08-29 05:44 | XMS_ITS | Clinical Summary ---
Author Organization [facility] Address [address] [facility], [address] [address] Phone Care Team Providers Care Dispatch Machine Runner Name Role Phone Bryce Judd MD Primary Care Provider Unavaila ble Allergies No known active allergies Medications gabapentin (NEURONTIN) 800 MG Tablet 06/04/2017 Active levothyroxine (SYNTHROID) 75 MCG Tablet TK 1 T PO QD 3 05/15/2017 Active CIALIS 20 MG Tablet TK 1 T PO QD 11 04/05/2017 Active traMADol (ULTRAM) 50 MG Tablet TK 1 T PO Q 6 H PRN P 1 03/29/2017 Active methylPREDNISolo ne (MEDROL DOSPACK) 4 MG Tablet Therapy Pack Use as directed. 1 Dose Pack 06/07/2017 Active Social History Tobacco Use Types Packs/Day Years Used Date Smoking Tobacco: Never Alcohol Use Standard Drinks/Week Comments Yes 0 (1 standard drink = 0.6 oz pur e alcohol) rarely Sex and Gender Information Value Date Recorded Sex Assigned at Not on file Legal Sex Male 9:13 PM CDT Gender Identity Not on file Sexual Orientation Not on file Last Filed Vital Signs Vital Sign Reading Time Taken Comments Blood Pressure 96/74 06/07/2017 4:01 PM CDT Pulse 74 06/07/2017 4:01 PM CDT Temperature - - Respiratory Rate 16 06/07/2017 4:01 PM CDT Oxygen Saturation 96% 06/07/2017 4:01 PM CDT Inhaled Oxygen Concentration - - Weight 88.5 kg (195 lb) 06/07/2017 4:01 PM CDT Height 180.3 cm (5' 11) 06/07/2017 4:01 PM CDT Body Mass Index 27.2 06/07/2017 4:01 PM CDT Plan of Treatment Health Maintenance Due Date Last Done Comments Hepatitis C Virus (HCV) Screening 1971 TdaP Immunization 1971 Hepatitis B Immunization (1 of 3 - 19+ 3-dose series) 1990 Cologuard 2016 Colonoscopy 2016 Colorectal Cancer Screening 2016 Immunochemical Fecal Occult Blood 2016 Pneumococcal Immunization (5 0+ years) (1 of 1 - PCV) 2021 Zoster Immunization (1 of 2) 2021 Influenza Immunization (#1) 2025 SARS-COV-2 Immunization ( - season) 2025 Respiratory Syncytial Virus (RSV) Immunization (Adult) (1 - 1-dose 75+ series) 2046 Human Papillomavirus (HPV) Immunization Aged Out No longer eligible b ased on patient's age to complete this topic Meningococcal Immunization (ACWY) Aged Out No longer eligible based on patient's age to complete this topic Rotavirus Immunization Aged Out No lo nger eligible based on patient's age to complete this topic Care Teams Dispatch Machine Runner Relationship Specialty Start Date End Date Bryce Judd MD [address] [facility] [address] [place] [address], [place] [address] PCP - General Internal Medicine 06/07/17
--- OUTSIDE RECORDS SUMMARY | 2025-08-29 05:44 | XMS_ITS | Clinical Summary ---
Author Organization [facility] Address [address] [place] [address] Care Team Providers Care Communications Intern Name Role Phone Unknown, Provider Primary Care Provider Unavaila ble Source Comments [facility],non-owned Affiliates and Associated Physician Practices is amultiple site organization consisting of ambulatory clinics and hospital sitesin [place], [place], [place] and [place]. This disclosure is being madepursuant to the Care Everywhere program and may not contain all information available regarding this patient. Last updated 18.[facility] [employer] Allergies Active Allergy Reactions Criticality Noted Date Comments Metoclopramide Other Medium 04/12/2021 Reaction: confusion at times, tired, sleepy, , Reaction: confusion at times, tired, sleepy, Medications * Be aware that medications may not be up to date on this document. Alwaysverify current medications with the patient. propranolol (INDERAL) 40 MG tablet Take 40 mg by mouth 2 times daily 9 Active gabapentin (NEURONTIN) 600 MG tablet Take 1 (one) tablet by mouth at bedtime 1 Active levothyroxine (Synthroid) 75 MCG tablet Take 1 (one) tablet by mouth once daily 2 Active tadalafil (Cialis) 20 MG tablet Take 1 (one) tablet by mouth once daily as needed 1 Active valACYclovir (Valtrex) 1 GM tablet Take 1,000 mg by mouth 2 times daily 2 Active nystatin (Mycostatin) 318653 UNIT/ML suspension Swish and spit 1 mL as directed 2 Active lansoprazole (Prevacid) 30 MG capsule Take 1 (one) capsule by mouth once daily TO IMPROVE HEARTBURN SYMPTOMS 90 capsule 4 2 Active LORazepam (Ativan) 0.5 MG tablet Take 1 (one) tablet by mouth as needed 3 Active Active Problems Problem Noted Date Diagnosed Date Cervical spine pain 03/23/2021 Overview (04/12/2021): Last Assessment & Plan: Referral to ent for eval. Last Assessment & Plan: r infrra laat neck and then into r upper sholder and grimces with nect rom makes me think this likely neck and maybe radicular trial nect self pt and see if helps Other male erectile dysfunction 05/14/2020 Chronic bilateral low back pain without sciatica 05/07/2020 Overview (04/12/2021): Last Assessment & Plan: Chronic and suggest core and ga e core program to try Mixed hyperlipidemia 05/07/2020 Overview (04/12/2021): Last Assessment & Plan: Starting atorvastihn 10 and take 1/2 for [...] over week and recheck along with tsh. Acquired hypothyroidism 05/06/2019 Overview (04/12/2021): Last Assessment & Plan: Check tsh on retunr Anxiety 05/06/2019 Overview (04/12/2021): Last Assessment & Plan: Prn propanolol used 2 times and ativan on ra re mary jo BMI 27.0-27.9,adult 05/06/2019 Overview (04/12/2021): Last Assessment & Plan: Muscle mass do not see wt but maybe a touch heavey Neuropathy 05/06/2019 Overview (04/12/2021): Last Assessment & Plan: Melisa 3 zaid a day and does well and will stay there Hypotension 12/27/2018 Chest pain 12/27/2018 Kidney stone 10/04/2018 Overview (04/12/2021): Last Assessment & Plan: Push fluids PE (physical exam), annual 10/04/2018 Overview (04/12/2021): Last Assessment & Plan: Well male with wt reasonable consider fallflu shot colon Coming up at age 51. psa In process.tetnus up to date. Restart workout and gave a Sore proram to try. Discussed flul shot Shoulder pain 03/03/2015 Overview (04/12/2021): Shoulder pain Last Assessment & Plan: choronic For monhts and Self wo rk Goiter 04/12/2014 Overview (04/12/2021): Thyromegaly Gastroesophageal reflux disease 09/28/2012 Overview (04/12/2021): GERD (gastroesophageal reflux disease) Last Assessment & Plan: No actaive issues Shortness of breath 09/28/2012 Overview (04/12/2021): Dyspnea Vascular ring of aorta 09/28/2012 Overview (04/12/2021): Vascular ring Immunizations Immunization Administration Dates Next Due TDAP (7yrs+) 05/03/2018 Zoster Hzv Vacc Recombinant Inj Im 08/09/2022, Social History Tobacco Use Types Packs/Day Years Used Date Smoking Tobacco: Never Smokeless Tobacco: Never Tobacco Cessation:Counseling Given: Not Answered Alcohol Use Standard Drinks/Week Comments Yes 0 (1 standard drink = 0.6 oz pur e alcohol) rare Sex and Gender Information Value Date Recorded Sex Assigned at Not on file Legal Sex Male 11:43 AM 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 Gender Identity Not on file Sexual Orientation Not on file Last Filed Vital Signs Vital Sign Reading Time Taken Comments Blood Pressure 113/78 05/15/2023 10:10 AM CDT Pulse 63 05/15/2023 10:10 AM CDT Temperature 36.7 C (98 F) 07/12/2022 3:17 PM CDT Respiratory Rate 18 04/19/2013 8:56 AM CDT Oxygen Saturation 98% 04/19/2013 8:56 AM CDT Inhaled Oxygen Concentration - - Weight 88.5 kg (195 lb) 05/15/2023 10:10 AM CDT Height 180.3 cm (5' 11) 05/15/2023 10:10 AM CDT Body Mass Index 27.2 05/15/2023 10:10 AM CDT Plan of Treatment Health Maintenance Due Date Last Done Comments COLON MONITORING 1971 COLONOSCOPY - COLON CA SCREENING 1971 CT COLONOGRAPHY - COLON CA SCREENING 1971 FIT - COLON CA SCREENING 1971 FLEX SIG - COLON CA SCREENING 1971 LIPID TESTING 1971 HIV SCREENING 1986 HEPATITIS C SCREENING 02/27/1989 HEPATITIS B VACCINE (1 of 3 - 19+ 3-dose series) 1990 PNEUMOCOCCAL VACCINE 50+ (1 of 1 - PCV) 2021 SCREENING FOR DIABETES 07/12/2022 05/06/2011 COLOGUARD (AGES 45-75) - COL ON CA SCREENING 06/14/2024 06/14/2021 Colorectal Cancer Screening 06/14/2024 DEPRESSION SCREENING 11/27/2024 COVID-19 VACCINE (3 - 2024-2 6 season) 2025 01/30/2021, 01/10/2021 INFLUENZA VACCINE (#1) 2025 DTAP/TDAP/TD VACCINES (2 - T d or Tdap) 05/03/2028 05/03/2018 ZOSTER VACCINE Completed 08/09/2022, 06/15/2021 HIB VACCINE Aged Out No longer eligi ble based on patient's age to complete this topic HPV VACCINE Aged Out No longer eligi ble based on patient's age to complete this topic MENINGOCOCCAL (Group B) VACCINE SHARED DECISION-MAKING Aged Out No longer eligible based on patient's age to complete this topic MENINGOCOCCAL GROUPS A/C/Y/W VACCINE Aged Out No longer eligible b ased on patient's age to complete this topic Procedures Procedure Name Priority Date/Time Associated Diagnosis Comments BASIC METABOLIC PANEL (CALCIUM TOTAL) Routine 05/06/2011 8:09 AM CDT from Last 3 Months or Most Recently Relevant to Health Maintenance Results * BASIC METABOLIC PANEL (CALCIUM TOTAL) (05/06/2011 8:09 AM CDT) Pathologist [facility] Glucose 90 65 - 99 mg/dL [facility] ([facility]) Comment: Fasting reference interval BUN 14 7 - 25 mg/dL [facility] Creatinine 0.94 0.78 - 1.34 mg/dL [facility]) BUN/Creatinine Ratio NOT APPLICABLE 6 - 22 (calc) [facility] Sodium 140 135 - 146 mmol/L [facility] Potassium 3.9 3.5 - 5.3 mmol/L [facility] Chloride 103 98 - 110 mmol/L [facility] CO2 29 21 - 33 mmol/L [facility] Calcium 9.8 8.6 - 10.2 mg/dL [facility] ([facility]) Comment: Test Performed at: [employer] [facility] [address] [place] [address] MARY GRACE GARCIA DO Venous blood specimen (specimen) (Arm, Left) 05/06/2011 8:09 AM CDT 05/06/2011 8:15 AM CDT Narrative [facility] ([facility]) - 05/06/2011 11:00 AM CDT Preferred Lab:->[facility] Lasha Arceo MD LAB - CHEMISTRY ORDERABLES Fin al Result [facility] ([facility]) [id number] from Last 3 Months or Most Recently Relevant to Health Maintenance Insurance [facility] Care Teams Communications Intern Relationship Specialty Start Date End Date Unknown, Provider PCP - General 05/15/23
--- OUTSIDE RECORDS SUMMARY | 2025-08-29 05:44 | XMS_ITS | Encounter Summary ---
Author Organization [employer] Address 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 Gender Identity Not on file Sexual Orientation Not on file documented as of this encounter Plan of Treatment Not on file documented as of this encounter Procedures Procedure Name Priority Date/Time Associated Diagnosis Comments TROPONIN (W/REFLEX CKMB/CK) Routine 07/24/2007 4:00 AM CDT LIPID PANEL Routine 07/24/2007 4:00 AM CDT TROPONIN (W/REFLEX CKMB/CK) Routine 07/23/2007 9:47 PM CDT CBC WITH DIFFERENTIAL Routine 07/23/2007 9:47 PM CDT CBC WITH DIFFERENTIAL Routine 07/23/2007 9:47 PM CDT COMPREHENSIVE METABOLIC PANEL Routine 07/23/2007 9:47 PM CDT documented in this encounter Results * (ABNORMAL) LIPID PANEL (07/24/2007 4:00 AM CDT) CHOLESTEROL 159 100 - 199 mg/dL INTERFACE SYSTEM TRIGLYCERIDE 178(H) 10 - 149 mg/dL INTERFACE SYSTEM HDL 37(L) 40 - 59 mg/dL INTERFACE SYSTEM CHOL/HDL RATIO 4.3 2.0 - 5.0 INTER FACE SYSTEM LDL CALCULATED 86 <=99 mg/dL INTERFACE SYSTEM LIPID PANEL COMMENT See Below INTERFACE SYSTEM Comment: The adult ATP and pediatric NCEP classifications for lipids are available on the [facility] Intranet at: [email or web address] Select: Lab Policies and Procedures Select: Reference Ranges - Lipids 07/24/2007 4:00 AM CDT Babatunde Corey MD CHEMISTRY ORDERABLES Edited Performing Organization Address [facility] de Phone Number INTERFACE SYSTEM Refer to clinic/hospital department * TROPONIN (W/REFLEX CKMB/CK) (07/24/2007 4:00 AM CDT) TROPONIN T <0.01 <=0.03 ng/mL INTERFACE SYSTEM TROPONIN T INTERP Negative INTERFACE SYSTEM 07/24/2007 4:00 AM CDT Babatunde Corey MD CHEMISTRY ORDERABLES Edited Performing Organization Address [facility] Co de Phone Number INTERFACE SYSTEM Refer to clinic/hospital department * TROPONIN (W/REFLEX CKMB/CK) (07/23/2007 9:47 PM CDT) TROPONIN T <0.01 <=0.03 ng/mL INTERFACE SYSTEM TROPONIN T INTERP Negative INTERFACE SYSTEM 07/23/2007 9:4 7 PM CDT Sivakumar Colin MD CHEMISTRY ORDERABLES Edited Performing Organization Address [facility] Co de Phone Number INTERFACE SYSTEM Refer to clinic/hospital department * CBC WITH DIFFERENTIAL (07/23/2007 9:47 PM CDT) NEUTROPHILS 56 45 - 70 % INTERFAC E SYSTEM LYMPHOCYTES 32 16 - 45 % INTERFAC E SYSTEM MONOCYTES 8 3 - 13 % INTERFACE SYSTEM EOSINOPHILS 4 0 - 7 % INTERFAC E SYSTEM BASOPHILS 1 0 - 2 % INTERFACE SYSTEM NEUTROPHIL ABSOLUTE 4.37 1.90 - 7.00 K/uL INTERFACE SYSTEM LYMPHOCYTE ABSOLUTE 2.49 0.70 - 4.50 K/uL INTERFACE SYSTEM MONOCYTE ABSOLUTE 0.60 0.10 - 1.30 K/uL INTERFACE SYSTEM EOSINOPHIL ABSOLUTE 0.31 0.00 - 0.70 K/uL INTERFACE SYSTEM BASOPHILS ABSOLUTE 0.05 0.00 - 0.20 K/uL INTERFACE SYSTEM 07/23/2007 9:47 PM CDT Sivakumar Colin MD HEMATOLOGY ORDERABLES Edited Performing Organization Address [facility] Phone Number INTERFACE SYSTEM Refer to clinic/hospital department * (ABNORMAL) CBC WITH DIFFERENTIAL (07/23/2007 9:47 PM CDT) WBC 7.8 4.0 - 9.8 K/uL INTERFACE SYSTEM RBC 4.55 4.50 - 5.40 M/uL INTERFACE SYSTEM HEMOGLOBIN 13.7 13.6 - 16.5 g/dL INTERFACE SYSTEM HEMATOCRIT 39.4(L) 40.0 - 48.0 % INTERFACE SYSTEM MCV 86.6 82.0 - 99.0 fL INTERFACE SYSTEM MCH 30.1 27.2 - 32.6 pg INTERFACE SYSTEM MCHC 34.8 31.5 - 35.5 % INTERFACE SYSTEM RDW 12.4 11.5 - 14.5 % INTERFACE SYSTEM RDW-STDEV 39.5 37.1 - 48.7 fL INTERFACE SYSTEM PLATELETS 176 140 - 350 K/uL INTERFACE SYSTEM MPV 10.9 9.3 - 12.4 fL INTERFACE SYSTEM 07/23/2007 9:47 PM CDT Sivakumar Colin MD HEMATOLOGY ORDERABLES Edited Performing Organization Address [facility] Phone Number INTERFACE SYSTEM Refer to clinic/hospital department * COMPREHENSIVE METABOLIC PANEL (07/23/2007 9:47 PM CDT) Pathologist [facility] GLUCOSE 92 65 - 99 mg/dL INTERFACE SYSTEM CREATININE 1.15 0.67 - 1.17 mg/dL INTERFACE SYSTEM CALCIUM 9.5 8.4 - 10.2 mg/dL INTERFACE SYSTEM ALKALINE PHOSPHATASE 60 40 - 129 U/L INTERFACE SYSTEM AST 25 12 - 38 U/L INTERFACE SYSTEM ALT 25 0 - 41 U/L INTERFACE SYSTEM TOTAL PROTEIN 7.7 6.3 - 8.6 g/dL INTERFACE SYSTEM ALBUMIN 4.7 3.4 - 4.8 g/dL INTERFACE SYSTEM BILIRUBIN TOTAL 0.3 0.2 - 1.0 mg/dL INTERFACE SYSTEM BUN 14 6 - 20 mg/dL INTERFACE SYSTEM SODIUM 142 135 - 145 mmol/L INTERFACE SYSTEM POTASSIUM 3.8 3.5 - 4.9 mmol/L INTERFACE SYSTEM CHLORIDE 103 96 - 108 mmol/L INTERFACE SYSTEM CO2 30 22 - 30 mmol/L INTERFACE SYSTEM GFR, >60 >=60 mL/min/1.7 sq meter INTERFACE SYSTEM GFR >60 >=60 mL/min/1.7 sq meter INTERFACE SYSTEM Comment: Estimated GFR rate interpretative information for both Americans and non- Americans is available on the [facility] Intranet at: [email or web address] Select: Lab Policies and Procedures Select: Reference Ranges - GFR 07/23/2007 9:47 PM CDT us Sivakumar Colin MD CHEMISTRY ORDERABLES Edited INTERFACE SYSTEM Refer to clinic/hospital department documented in this encounter Visit Diagnoses Diagnosis Other chest pain- Primary documented in this encounter Care Teams Security Operations Analyst Relationship Specialty Start Date End Date Bryce Judd MD PCP - General 11/13/15 documented as of this encounter
--- OUTSIDE RECORDS SUMMARY | 2025-08-29 05:44 | XMS_ITS | Encounter Summary ---
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
[2025-08-29 05:46] VITALS: BP 146/91; PULSE 54; RESP 16; TEMP 36.5; O2SAT 100
[2025-08-29 05:52] VITALS: BP 146/91; PULSE 54; RESP 16; TEMP 36.5; O2SAT 20
--- NOTE | 2025-08-29 06:11 | PC.NURSE ---
Pt came to nursing station requesting to leave. Pt stated he has an appointment at 0630 with his friends to play pickle ball and doesn't want to stand them up.
--- OUTSIDE RECORDS SUMMARY | 2025-08-29 06:24 | XMS_ITS | Encounter Summary ---
Author Organization [employer] [facility] Address [address] [facility] Attn: Epic Prelude ADT [place] [address] Care Team Providers Care Tubular Products Fabricator Name Role Phone Bryce Judd MD Primary [...] on file Legal Sex Male 5:28 AM TRIAL MGR Gender Identity Not on file Sexual Orientation Not on file documented as of this encounter Plan of Treatment Not on file documented as of this encounter Visit Diagnoses Not on filedocumented in this encounter Care Teams Tubular Products Fabricator Relationship Specialty Start Date End Date Bryce Judd MD PCP - General 11/13/15 documented as of this encounter
--- OUTSIDE RECORDS SUMMARY | 2025-08-29 06:24 | XMS_ITS | Clinical Summary ---
Author Organization [facility] Address [address] [place] [address] Care Team Providers Care Screw Machine Hand Name Role Phone Mario Toro Primary Care Provider Viktoria Quiñonez MD, Brigidosara Souza Unavailable [phone] Allergies Active Allergy Reactions Criticality Noted Date [...] there Assessment & Plan (11/06/2019 10:29 AM FLOTATION OPERATOR): Using becca at [address] and works [...] few Assessment & Plan (11/06/2019 10:30 AM FLOTATION OPERATOR): Work to keep stable Assessment & Plan (05/06/2019 11:11 AM CDT): Work to keep wt stable Situational anxiety 05/06/2019 Assessment & Plan (05/07/2020 11:29 AM CDT): Prn propanolol used 2 times and ativan on ra re mary jo Assessment & Plan (11/06/2019 10:30 AM FLOTATION OPERATOR): luse of propanolol 40 bid discussed and [...] yr Assessment & Plan (11/06/2019 10:29 AM FLOTATION OPERATOR): tsh at 2.3 and good an nochagers with intent to suppress. Check in ayr'ly basis Assessment & Plan (05/06/2019 11:15 AM CDT): On omeds and tsh 1.33. No changes and fcheck 6months Kidney stone 10/04/2018 Assessment & Plan (11/06/2019 10:32 AM FLOTATION OPERATOR): Push fluids PE (physical exam), annual 10/04/2018 [...] shot Assessment & Plan (11/06/2019 10:32 AM FLOTATION OPERATOR): Check in 6monbnth with p.e. Assessment & [...] Type Department Care Team Description 08/21/2025 Telephone [facility] Primary Care at [address] [phone] Chiqui Doe MA Prior Auth (becca) 08/19/2025 8:45 AM CDT Lab [address] Vitamin B 12 deficiency; Need for hepatitis B screening test; Acquired hypothyroidism; Mixed hyperlipidemia; Neuropathy 08/19/2025 8:15 AM CDT Office Visit [facility] Primary Care at [address] [phone] Mario Toro PA PE (physical exam), annual (Primary Dx); Vascular ring of aorta; Neuropathy; Acquired hypothyroidism; Mixed hyperlipidemia; BMI 26.0-26.9,adult; Erectile dysfunction, unspecified erectile dysfunction type; Situational anxiety 08/19/2025 Results Follow-Up [facility] Primary Care at [address] [phone] Mario Toro PA Vitamin B12, TSH, Lipid panel, Additional followed-up results: 2 06/24/2025 Orders Only [facility] Primary Care at [address] [phone] Mario Toro PA from Last 3 Months [...] sided aorti c arch Hx Other Medical 01-Grand Scribe Hx Other Medical heart surgery Hx Other [...] on file Legal Sex Male 7:19 PM FLOTATION OPERATOR Gender Identity Not on file Sexual Orientation [...] BLOOD ORDERABLES Fi nal Result [facility] [place]) [address] [facility] [place] [address] * Hepatitis C antibody Blood [...] last revised on 2020. Testing performed by: [facility], [address] [place] [address]., [id number] Blood 08/19/2025 8:05 AM CDT 08/19/2025 11:09 AM CDT Mario MILLER LAB MICROBIOLOGY - GENE RAL ORDERABLES Final Result Performing Organization Address City/[facility]/ZIP Co de Phone Number [facility] ([place]) [address] [place] [address] [address] [place], [place] [id number] * Hepatitis B core antibody, total Blood (08/19/2025 8:05 AM CDT) Hep B core IgG/IgM Nonreactive Nonreactive Comment:Testing performed by : [facility], [address] [place] [address], [address] Blood 08/19/2025 8:05 AM CDT 08/19/2025 11:52 AM CDT Mario MILLER LAB MICROBIOLOGY - GENE RAL ORDERABLES Final Result [facility] ([place]) 1 [facility] [place] [address] * Hepatitis B surface antibody (immune status) [...] last revised on 20. Testing performed by: [facility], [address] [place] [address]., [address] Blood 08/19/2025 8:05 AM CDT 08/19/2025 11:09 AM CDT Mario MILLER LAB MICROBIOLOGY - GENE RAL ORDERABLES Final Result Performing Organization Address City/[facility]/ZIP Co de Phone Number [facility] ([place] 1 [facility] [email or web address] [address] * Hepatitis B Surface Antigen Blood (08/19/2025 8:05 AM CDT) HepBsAg Nonreactive Nonreactive Comment:Testing performed by : [facility], [address] [place] [address]., [address] Blood 08/19/2025 8:05 AM CDT 08/19/2025 11:09 AM CDT Mario MILLER LAB MICROBIOLOGY - GENE RAL ORDERABLES Final Result Performing Organization Address [facility] Co de Phone Number [facility] ([place]) 1 [facility] [address] * TSH (08/19/2025 8:05 AM CDT) Thyroid Stimulating Hormone 3.79 0.30 - 4.20 mcIUnit/mL [facility] ([place]) Blood 08/19/2025 8:05 AM CDT 08/19/2025 8:44 AM CDT Mario MILLER LAB BLOOD ORDERABLES Fi nal Result [facility] ([place]) 1 [facility] [email or web address] [address] * Vitamin B12 (08/19/2025 8:05 AM CDT) Vitamin B12 448 230 - 1,250 pg/mL [facility] ([place]) Blood 08/19/2025 8:05 AM CDT 08/19/2025 8:44 AM CDT us Mario MILLER LAB BLOOD ORDERABLES Fi nal Result [facility] ([place]) 1 [facility] [place] [address] * (ABNORMAL) Lipid panel (08/19/2025 8:05 AM [...] 2018. HDL 56 >=40 mg/dL [facility] ([place]) Comment: Interpretive Data Ages < or = [...] LDL, calculated 122 <=129 mg/dL [facility] ([place]) Comment: Interpretive Data Ages < or = [...] last revised on 2024. Testing performed by: [facility], [facility], [place], [address] Non-HDL Cholesterol 144 mg/dL [facility] ([place]) Comment: Interpretive Data Ages < or = [...] last revised on 2018. Testing performed by: [facility], [facility], [place], [address] Chol/HDL ratio 4 [facility] ([place]) Comment:Testing performed by : [facility], [facility], [place], [address] Blood 08/19/2025 8:05 AM CDT 08/19/2025 8:44 AM CDT us Mario MILLER LAB BLOOD ORDERABLES Fi nal Result [facility] ([place] [address] [facility] Department [place] [address] * Comprehensive metabolic panel (08/19/2025 8:05 AM [...] ORDERABLES nal Result [facility] ([place]) [address] [facility] [place] [address] * Stool DNA - Cologuard (08/27/2024 9:23 PM CDT) Stool DNA - Cologuard Negative Negative [place] (CLIA #:[id number]) Comment: NEGATIVE TEST RESULT. A negative Cologuard [...] Lipscomb et al, N Engl J Med 2014;370(14):8564-4786) The normal value (reference range) for this assay is negative. COLOGUARD RE-SCREENING RECOMMENDATION: Periodic colorectal cancer screening is an important part of preventive healthcare for asymptomatic individuals at average risk for colorectal cancer. Following a negative Cologuard result, the [place] Cancer Society and U.S. Multi-Society Task Force screening guidelines recommend a Cologuard re-screening interval of 3 years. References: [place] [employer] Guideline for Colorectal Cancer Screening: https://www.cancer.org/cancer/evndy-gdxxdb-haucsz/dnvmlxxxz-whahujhxa-wfkeula/ac s-rec ommendations.html.; Christian CASTELLON, Clotilde DEAN, Cruziot GALARZA, Colorectal Cancer Screening: Recommendations for Physicians and Patients from the U.S. Multi-Society Task Force on Colorectal Cancer Screening , Am J Gastroenterology 2017; 112:7257-5396. TEST DESCRIPTION: Composite algorithmic analysis of stool [...] Fowler. et al, N Engl J Med 2014;370(14):6391-8942.) Cologuard may produce a false negative or false positive result (no colorectal cancer or precancerous polyp present at colonoscopy follow up). A negative Cologuard test result does not guarantee the absence of CRC or advanced adenoma (pre-cancer). The current Cologuard screening interval is every 3 years. ([place] Cancer Society and U.S. Multi-Society Task Force). Cologuard performance data in a 10,000 patient pivotal study using colonoscopy as the reference method can be accessed at the following location: www.[employer]/results. Additional description of the Cologuard test process, warnings and precautions can be found at www.cologuard.com. Stool 08/27/2024 9:23 PM CDT 08/29/2024 9:52 AM CDT Mario MILLER LAB BODY FLUIDS AND STO OLS ORDERABLES Final Result [employer] (CLIA #:[id number]) [place] [address] * PSA screen (08/16/2024 9:25 AM CDT) [...] Fi nal Result [facility] ([place]) [address] [facility] Department [place] [address] from Last 3 Months or Most Recently Relevant to Health Maintenance Insurance [facility] CHOICE PLUS CHOICE PLUS Care Teams Screw Machine Hand Relationship Specialty Start Date End Date Mario Toro PA [address] [place] [address] [place] [address] PCP - General Internal Medicine 08/09/22 [place] [address] [address] Consulting Physician Orthopedic Surgery 08/19/25
--- OUTSIDE RECORDS SUMMARY | 2025-08-29 06:24 | XMS_ITS | Encounter Summary ---
Author Organization [facility] Address [address] [place] [address] Phone Care Team Providers Care Hvac Sheet Metal Installer Name Role Phone Bryce Judd MD Primary Care Provi gissel Mario Toro Primary Care Provider Bryce Judd MD Primary Care Provi gissel Mario Toro Primary Care Provider Viktoria Quiñonez MD, [facility] +1- [phone] Encounter Details Date Type Department Care Team (Late st Contact Info) Description 11/15/[address] [facility] ProviderCristhian MD [address] [place] [address] Social History Tobacco Use Types Packs/Day Years Used Date Smoking Tobacco: Never Alcohol Use Standard Drinks/Week Comments Yes 0 (1 standard drink = 0.6 oz pur e alcohol) Sex and Gender Information Value Date Recorded Sex Assigned at Not on file Legal Sex Male 7:19 PM DELI/BAKERY ASSOCIATE Gender Identity Not on file Sexual Orientation Not on file documented as of this encounter Plan of Treatment Not on file documented as of this encounter Procedures Procedure Name Priority Date/Time Associated Diagnosis Comments DISCHARGE LABORATORY CUMULATIVE REPORT 11/15/2017 12:00 AM DELI/BAKERY ASSOCIATE documented in this encounter Results * DISCHARGE LABORATORY CUMULATIVE REPORT (11/15/2017 12:00 AM DELI/BAKERY ASSOCIATE) Narrative 11/15/2017 12:00 AM DELI/BAKERY ASSOCIATE Ordered by an unspecified provider. us Historical Provider LAB BLOOD ORDERABLES Nancy l Result documented in this encounter Visit Diagnoses Not on filedocumented in this encounter Care Teams Hvac Sheet Metal Installer Relationship Specialty Start Date End Date Bryce Judd MD PCP - General 02/24/17 07/27/22 Mario Toro PA [address] [place] [address] PCP - General Internal Medicine 07/28/22 08/02/22 Bryce Judd MD [address] [place] [address] [place] [address] PCP - General 08/03/22 08/08/22 Mario Toro PA [address] [place] [address] [place] [address] PCP - General Internal Medicine 08/09/22 [place] [address] [place] [address] Consulting Physician Orthopedic Surgery 08/19/25 documented as of this encounter
--- OUTSIDE RECORDS SUMMARY | 2025-08-29 06:24 | XMS_ITS | Clinical Summary ---
Author Organization [facility] Address [address] [facility], [address] [address] Phone Care Team Providers Care Gasoline Service Attendant Name Role Phone Bryce Judd MD Primary [...] age to complete this topic Care Teams Gasoline Service Attendant Relationship Specialty Start Date End Date Bryce Judd MD [address] [place] [address], [place] [address] PCP - General Internal Medicine 06/07/17
--- OUTSIDE RECORDS SUMMARY | 2025-08-29 06:24 | XMS_ITS | Clinical Summary ---
Author Organization [facility] Address [address] [place] [address] Care Team Providers Care Harness Placer Name Role Phone Unknown, Provider Primary Care Provider Unavaila ble Source Comments [facility],non-owned Affiliates and Associated Physician Practices is amultiple site organization consisting of ambulatory clinics and hospital sitesin [place], [place], [place] and [place]. This disclosure is being madepursuant to the Care Everywhere program and may not contain all information available regarding this patient. 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 GENERAL MANAGER Gender Identity Not on file Sexual [...] (CALCIUM TOTAL) (05/06/2011 8:09 AM CDT) Pathologist [facility] Glucose 90 65 - 99 mg/dL [facility] [...] mg/dL [facility] ([facility]) Comment: Test Performed at: [facility] [address] [place] [address] MARY GRACE GARCIA DO Venous blood specimen (specimen) (Arm, Left) 05/06/2011 8:09 AM CDT 05/06/2011 8:15 AM CDT Narrative [facility] ([facility]) - 05/06/2011 11:00 AM CDT Preferred Lab:->[facility] Lasha Arceo MD LAB - CHEMISTRY ORDERABLES Fin al Result [facility] ([facility]) [address] from Last 3 Months or Most Recently Relevant to Health Maintenance Insurance [facility] Care Teams Harness Placer Relationship Specialty Start Date End Date Unknown, Provider PCP - General 05/15/23
--- OUTSIDE RECORDS SUMMARY | 2025-08-29 06:24 | XMS_ITS | Encounter Summary ---
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
--- OUTSIDE RECORDS SUMMARY | 2025-08-29 06:24 | XMS_ITS | Clinical Summary ---
Author Organization [facility] Address [address] [place] [address] Phone Care Team Providers Care Dope Dry House Operator Name Role Phone Bryce Judd MD Primary Care Provider Declan gonsalez Allergies No known active allergies Medications aspirin (BRIAN) 81 mg Oral Tab Take by mouth. Active levothyroxine (SYNTHROID) 50 mcg Oral tablet Take 50 mcg by mouth daily costumed character entertainer. 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 CARETAKER Gender Identity Not on file Sexual Orientation Not on file Last Filed Vital Signs Vital Sign Reading Time Taken Comments Blood Pressure 100/70 12/27/2018 3:07 PM RENTAL BOATS CARETAKER Pulse 72 12/27/2018 3:05 PM RENTAL BOATS CARETAKER Temperature 36.6 C (97.9 F) 04/23/2012 5:13 PM CDT Respiratory Rate 16 12/27/2018 3:05 PM RENTAL BOATS CARETAKER Oxygen Saturation 97% 12/27/2018 3:05 PM RENTAL BOATS CARETAKER Inhaled Oxygen Concentration - - Weight 88.9 kg (196 lb) 12/27/2018 3:05 PM RENTAL BOATS CARETAKER Height 180.3 cm (5' 11) 12/27/2018 3:05 PM RENTAL BOATS CARETAKER Body Mass Index 27.34 12/27/2018 3:05 PM RENTAL BOATS CARETAKER Plan of Treatment Health Maintenance Due Date [...] Td or Tdap) 05/03/2028 Insurance [employer] PPO [id number] Care Teams Dope Dry House Operator Relationship Specialty Start Date End Date Bryce Judd MD PCP - General 11/13/15
--- OUTSIDE RECORDS SUMMARY | 2025-08-29 06:24 | XMS_ITS | Encounter Summary ---
Author Organization [facility] Address [address] [place] [address] Care Team Providers Care Water/Wastewater Engineer Name Role Phone Bryce Judd MD Primary Care Provider Declan gonsalez Encounter Details Date Type Department Care Team (Late st Contact Info) Description 07/24/2007 Outpatient Historical [facility] (Adt Cardiology-[place]) [facility] [place] [address] Bryce Corral MD [address] [facility] [address] [place] [address] Social History Tobacco Use Types Packs/Day Years Used Date Smoking Tobacco: Never Assessed Sex and Gender Information Value Date Recorded Sex Assigned at Not on file Legal Sex Male 5:28 AM NUCLEAR WASTE MANAGEMENT ENGINEER Gender Identity Not on file Sexual Orientation Not on file documented as of this encounter Plan of Treatment Not on file documented as of this encounter Visit Diagnoses Not on filedocumented in this encounter Care Teams Water/Wastewater Engineer Relationship Specialty Start Date End Date Bryce Judd MD PCP - General 11/13/15 documented as of this encounter
== END 2025-08-29 06:05 | disposition left against medical advice (07) ==
LOC: ANHED 06:22
PROVIDERS: PCP Physician Assistant
DX: R09.A2 Foreign body sensation, throat (principal)
CPT/HCPCS: 99199